=== PATIENT | male | born 1970 | race Caucasian/White ===

== ENCOUNTER 2018-03-29 14:33 | Emergency (ER) | payer MEDICAID | END 2018-03-29 15:52 | disposition home or self-care (01) | LOC: FTE 14:33 | DX: D17.1 Benign lipomatous neoplasm of skin and subcutaneous tissue of trunk (principal); E11.9 Type 2 diabetes mellitus without complications; Z79.84 Long term (current) use of oral hypoglycemic drugs | CPT/HCPCS: 82962; 99283 ==